=== PATIENT | male | born 1985 ===

== ENCOUNTER 2023-12-30 21:08 | Inpatient (IN) | payer MEDICAID, OTHER ==
[~2023-12-30] VITALS: Ht 190.5 cm; Wt 155.9 kg
[2023-12-30] MEDS: DiphenhydrAMINE HCL 50 MG/ML VIAL IM ONE (22:20)
[2023-12-30] MEDS: LORazepam 2 MG/ML VIAL IM ONE (22:20)
[2023-12-30] MEDS: ZIPRASIDONE MESYLATE 20 MG/VIAL IM ONE (22:20)
[2023-12-30 22:21] LABS: COVID AG,FIA SOURCE NASAL SWAB
[2023-12-30 22:28] LABS: SARS-COV2 (COVID) ANTIGEN,FIA Negative (Negative)
[2023-12-30 23:25] LABS: ALCOHOL, URINE DRUG SCREEN NEGATIVE (NEGATIVE); AMPHET/METH SCREEN,URINE NEGATIVE (NEGATIVE); BARBITURATE SCREEN, URINE NEGATIVE (NEGATIVE); BENZODIAZEPINES SCREEN,URINE POSITIVE (NEGATIVE); CANNABINOID SCREEN,URINE POSITIVE (NEGATIVE); COCAINE SCREEN,URINE NEGATIVE (NEGATIVE); METHADONE SCREEN, URINE NEGATIVE (NEGATIVE); OPIATE SCREEN,URINE NEGATIVE (NEGATIVE); PHENCYCLIDINE SCREEN,URINE NEGATIVE (NEGATIVE)
[2023-12-30 23:35] LABS: BASOPHILS % (AUTO) 0.8 % (0.0-2.0); EOSINOPHILS % (AUTO) 1.1 % (1.0-6.0); HEMATOCRIT 39.5 % (41-53); HEMOGLOBIN 13.2 g/dL (13.5-17.5); LYMPHOCYTES # (AUTO) 2.3 K/uL (1.0-4.8); LYMPHOCYTES % (AUTO) 22.8 % (22.0-44.0); MEAN CORPUSCULAR HEMOGLOBIN 28.2 pg (26.0-34.0); MEAN CORPUSCULAR HGB CONC 33.6 G/dL (31.0-37.0); MEAN CORPUSCULAR VOLUME 84 fL (80-100); MONOCYTES # (AUTO) 0.8 K/uL (0.1-1.0); MONOCYTES % (AUTO) 7.5 % (2.0-9.0); NEUTROPHILS # (AUTO) 6.7 K/uL (1.8-7.7); NEUTROPHILS % (AUTO) 67.8 % (40.0-70.0); PLATELET COUNT (AUTO) 255 K/uL (150-450); RED BLOOD CELL COUNT(AUTO) 4.69 MIL/uL (4.50-5.90); RED CELL DISTRIBUTION WIDTH 14.8 % (11.5-14.5); WHITE BLOOD COUNT (AUTO) 9.9 K/uL (4.5-11.0)
[2023-12-30 23:44] LABS: ANION GAP 9 mmol/L (8-16); CALCIUM, TOTAL 9.2 mg/dL (8.8-10.5); CARBON DIOXIDE 28 mmol/L (22-29); CHLORIDE 102 mmol/L (98-107); CREATININE 0.76 mg/dL (0.60-1.30); GLOMERULAR FILTR. RATE CALC > 60 mL/min (>60); GLUCOSE,RANDOM 107 mg/dL (70-110); POTASSIUM 3.6 mmol/L (3.5-5.1); SODIUM SERUM 139 mmol/L (136-145); UREA NITROGEN, BLOOD 14 mg/dL (7-18)
[2023-12-30 23:50] LABS: ALANINE AMINOTRANSFERASE 29 U/L (12-78); ALBUMIN 3.5 g/dL (3.4-5.0); ALKALINE PHOSPHATASE 72 U/L (46-116); ASPARTATE AMINOTRANSFERASE 23 U/L (15-37); BILIRUBIN,TOTAL 0.5 mg/dL (0.1-1.0); TOTAL PROTEIN, SERUM 7.3 g/dL (6.4-8.2)
[2023-12-30 23:59] LABS: ALCOHOL, BLOOD (SERUM) < 3 mg/dL (0-10)
[2023-12-31] MEDS: LORazepam 2 MG/ML VIAL IM ONE ×2 (00:13→10:33)
[2023-12-31] MEDS: HALOPERIDOL LACTATE 5 MG/ML VIAL IM ONE ×2 (00:14→10:33)
[2023-12-31] MEDS: LORazepam 2 MG TABLET PO PRN (07:01)
[2023-12-31] MEDS: HALOPERIDOL 5 MG TABLET PO PRN (07:01)
[2023-12-31] MEDS: DiphenhydrAMINE HCL 50 MG/ML VIAL IM ONE (10:33)
[2023-12-31 23:17] VITALS: BP 134/76; PULSE 88; RESP 18; TEMP 97.2; O2SAT 99
[2024-01-01] MEDS ORDERED: CloNIDine HCL 0.1 MG TABLET PO PRN (00:15)
[2024-01-01] MEDS ORDERED: MAG HYDROX/ALUMINUM HYD/SIMETH ES 30 ML SUSPENSION UDCUP PO PRN (00:15)
[2024-01-01] MEDS ORDERED: MAGNESIUM HYDROXIDE SUSPENSION 30 ML UDCUP PO PRN (00:15)
[2024-01-01] MEDS ORDERED: PETROLATUM,WHITE 28 GM JELLY TP PRN (00:15)
[2024-01-01] MEDS ORDERED: DOCUSATE SODIUM 100 MG CAPSULE PO PRN (00:15)
[2024-01-01] MEDS ORDERED: ALBUTEROL SULFATE HFA 90 MCG/PUFF 8 GM INHALER IH PRN (00:15)
[2024-01-01] MEDS ORDERED: LOPERAMIDE HCL 2 MG CAPSULE PO PRN (00:15)
[2024-01-01] MEDS ORDERED: BENZOCAINE/MENTHOL LOZENGE PO PRN (00:15)
[2024-01-01] MEDS ORDERED: ONDANSETRON HCL 4 MG TABLET PO PRN (00:15)
[2024-01-01 09:00] VITALS: BP 131/65; PULSE 92; RESP 18; TEMP 97.5; O2SAT 98
[2024-01-01 14:00] VITALS: BP 153/79; PULSE 88; RESP 18; TEMP 98
[2024-01-01] MEDS: IBUPROFEN 600 MG TABLET PO PRN (14:00)
[2024-01-01 15:00] VITALS: BP 142/78; PULSE 82; RESP 17; TEMP 98
[2024-01-01] MEDS: LITHIUM CARBONATE 300 MG CAPSULE PO SCH (16:50)
[2024-01-01 22:50] VITALS: BP 148/81; PULSE 90; RESP 19; TEMP 97.6; O2SAT 98
[2024-01-01 22:59] VITALS: RESP 18
[2024-01-01] MEDS: ZOLPIDEM TARTRATE 10 MG TABLET PO PRN (22:59)
[2024-01-02] MEDS: OMEPRAZOLE 20 MG CAPSULE PO PRN (00:05)
[2024-01-02 00:11] VITALS: BP 152/75; PULSE 81; RESP 18; TEMP 97.7; O2SAT 98
[2024-01-02 05:15] VITALS: BP 150/80; PULSE 86; RESP 20; TEMP 98.1; O2SAT 99
[2024-01-02 06:22] VITALS: RESP 18
[2024-01-02 08:34] VITALS: BP 128/57; PULSE 81; RESP 18; TEMP 96.9; O2SAT 95
[2024-01-02] MEDS ORDERED: LITH300C3 PO (16:06)
== END 2024-01-02 18:00 | disposition home or self-care (01) | DRG 751 ==
LOC: EMS 21:11 → 3EC 12-31 19:10
PROVIDERS: ADMIT Psychiatry & Neurology Psychiatry; ATTEND Psychiatry & Neurology Psychiatry
DX: F29 Unspecified psychosis not due to a substance or known physiological condition (principal); E66.01 Morbid (severe) obesity due to excess calories; F31.9 Bipolar disorder, unspecified; K21.9 Gastro-esophageal reflux disease without esophagitis; K59.00 Constipation, unspecified; F12.10 Cannabis abuse, uncomplicated; F20.9 Schizophrenia, unspecified; M54.50 Low back pain, unspecified; Z20.822 Contact with and (suspected) exposure to COVID-19; G47.00 Insomnia, unspecified; F41.9 Anxiety disorder, unspecified; Z88.5 Allergy status to narcotic agent; Z88.8 Allergy status to other drugs, medicaments and biological substances; Z68.41 Body mass index [BMI] 40.0-44.9, adult
CPT/HCPCS: 80053; 80307; 85025; 99285; G0480; J1200; J1630; J2060; J3486